=== PATIENT | male | born 1980 | race Caucasian/White ===

== ENCOUNTER → 2016-11-29 | Outpatient (CLI) | payer OTHER ==
[~2016-11-29] MED LIST: ACET-1256 PO; IBUP-1050 PO; LANS30CA12 PO; MELO15TA4 PO; ONDA4TAB10 SL; OPTIRAY 320 IV PRN; OXYC1TAB3 PO; PRED20TA PO; TRAM-10 PO
--- NOTE | 2016-11-29 15:59 | DIAGNOSTIC IMAGING REPORT ---
CT OF THE ABDOMEN WITH IV AND ORAL CONTRAST CT DOSE: 688.67 mGycm CLINICAL HISTORY: Acute left upper quadrant pain. TECHNIQUE: Axial images of the abdomen were obtained following intravenous injection of 94 cc Optiray 320 IV. Oral contrast was administered. COMPARISON STUDY: None. FINDINGS: Visualized portions of the lower chest demonstrate linear and groundglass opacities suggestive of atelectasis. There is no pneumatosis, free air or portal venous gas within the abdomen. Liver morphology is normal. Note is made of a 1.3 cm hypodense segment 7 hepatic lesion shown on axial image 2472. The size of the spleen is at the upper limits of normal. There is no perisplenic fluid. There is no splenic lesion. The adrenal glands, kidneys and pancreas are normal. There is no biliary or pancreatic ductal dilatation. No abdominal lymphadenopathy or ascites is identified. The caliber and wall thickness of visualized small and large bowel are normal. Skeletal structures are unremarkable. IMPRESSION: 1. No acute process within the abdomen. 2. No significant abnormality of the spleen. Size of the spleen at the upper limits of normal. No perisplenic fluid. 3. Indeterminate 1.3 cm right hepatic lobe lesion. Although indeterminate, this is likely benign. A follow-up right upper quadrant ultrasound could be obtained. Electronically signed by: Hermilo Alejandre M.D. 11/29/2016 3:57 PM Dictated Date/Time: 11/29/2016 3:50 PM
== END | disposition home or self-care (01) ==
LOC: C.CTS 14:52
PROVIDERS: ATTEND Internal Medicine
DX: R10.12 Left upper quadrant pain (principal); K76.9 Liver disease, unspecified

== ENCOUNTER → 2017-03-14 | Outpatient (CLI) | payer OTHER ==
[~2017-03-14] MED LIST changes: +CYCL10TA6 PO; +DOCU-94 PO; +IBUP-1451 PO; +METH4PAK PO; +ONDA4TAB10 PO; -OPTIRAY 320 IV PRN; +PRLSR20 PO
--- NOTE | 2017-03-14 09:48 | DIAGNOSTIC IMAGING REPORT ---
ABDOMINAL ULTRASOUND, RIGHT UPPER QUADRANT HISTORY: Evaluate liver lesion on CT.. COMPARISON: Abdomen and pelvis CT 11/29/2016. FINDINGS: Pancreas: The pancreatic tail is obscured by overlying bowel gas. The remaining portions of the pancreas are within normal limits. Liver: Unremarkable. Gallbladder: No gallbladder wall thickening. No gallstones. CBD: 4 mm. Right kidney: No hydronephrosis. IMPRESSION: 1. No significant abnormality within the abdomen. 2. Specifically, the right hepatic lobe lesion seen on CT was not identified on this examination. This was likely obscured by the overlying lung parenchyma given the close proximity to the diaphragm. Electronically signed by: Marcus Medina M.D. 03/14/2017 9:47 AM Dictated Date/Time: 03/14/2017 9:45 AM
== END | disposition home or self-care (01) ==
LOC: C.ULTR 09:16
PROVIDERS: ATTEND Internal Medicine
DX: K76.9 Liver disease, unspecified (principal)

== ENCOUNTER → 2017-04-23 | Outpatient (CLI) | payer OTHER ==
[2017-04-23 12:15] LABS: BASO % 0.2 %; BASO ABS # 0.02 K/uL (0-0.2); COMPLETE YES; EOS % 2.4 %; HEMATOCRIT 43.3 % (42-52); IG% 0.1 %; LYMPH % 25.3 %; MEAN CELL VOLUME 90.8 fL (80-100); MEAN CORPUSCULAR HGB CONC 34.2 g/dl (32-36); MEAN PLATELET VOLUME 9.5 fL (7.4-10.4); PLATELET COUNT 228 K/uL (130-400); RED BLOOD COUNT 4.77 M/uL (4.7-6.1)
[2017-04-23 12:32] LABS: ALT/SGPT 28 U/L (12-78); BLOOD UREA NITROGEN 21 mg/dl (7-18); CARBON DIOXIDE 26 mmol/L (21-32); CHLORIDE 106 mmol/L (98-107); CHOLESTEROL 200 mg/dl (0-200); CREATININE 0.92 mg/dl (0.60-1.40); GLUCOSE 91 mg/dl (70-99); MAGNESIUM 2.2 mg/dl (1.8-2.4); POTASSIUM 4.3 mmol/L (3.5-5.1); SODIUM 140 mmol/L (136-145); TRIGLYCERIDES 157 mg/dl (0-150); VERY LOW DENSITY LIPOPROT CALC 31 mg/dl
[2017-04-23 12:42] LABS: ALB/GLOB RATIO 1.3 (0.9-2); ALKALINE PHOSPHATASE 63 U/L (45-117); AST/SGOT 17 U/L (15-37); CHOLESTEROL/HDL RATIO 5.4; HDL CHOLESTEROL 37 mg/dl; LDL CHOLESTEROL CALCULATED 132 mg/dl
== END | disposition home or self-care (01) ==
LOC: C.LABBFT 08:30
PROVIDERS: ATTEND Internal Medicine
DX: Z00.00 Encounter for general adult medical examination without abnormal findings (principal); R07.9 Chest pain, unspecified; R00.2 Palpitations; K76.9 Liver disease, unspecified

== ENCOUNTER 2017-05-20 11:49 | Emergency (ER) | payer OTHER ==
[~2017-05-20] VITALS: Ht 180.3 cm; Wt 114.0 kg
[2017-05-20 11:51] VITALS: TEMP 36.6; Ht 180.3 cm; Wt 114.0 kg
[2017-05-20] MEDS ORDERED: ONDANSETRON INJ 2 MG/ML 2 ML VIAL IV STA ×2 (12:54→15:54)
[2017-05-20] MEDS ORDERED: HYDROmorphone INJ 1 MG/ML SYR IV STA (12:54)
[2017-05-20] MEDS ORDERED: KETOROLAC TROMETHAMINE 30 MG/ML VIAL IV STA (12:54)
[2017-05-20] MEDS ORDERED: DEXAMETHASONE SOD INJ 10 MG/ML VIAL IV ONE (13:00)
[2017-05-20] MEDS ORDERED: MELO15TA4 PO (13:36)
[2017-05-20] MEDS ORDERED: LANS30CA12 PO (13:37)
[2017-05-20] MEDS ORDERED: IBUP-1050 PO (13:39)
--- NOTE | 2017-05-20 14:50 | DIAGNOSTIC IMAGING REPORT ---
LUMBAR SPINE W/O CONTRAST HISTORY: 36-year-old male presents with radicular low back pain with left leg weakness for approximately 2 weeks. COMPARISON: MRI lumbar spine 03/13/2013, lumbar spine radiographs 03/09/2013. TECHNIQUE: Multiplanar multisequence MRI of the lumbar spine was obtained without contrast. FINDINGS: Vertebral body heights are well-maintained without compression deformity. No focal bone marrow or soft tissue edema. Mild disc desiccation is present at L4-L5 with mild intervertebral disc space narrowing. Conus medullaris terminates at the T12-L1 level. Signal within the cord is unremarkable. T12-L1: Unremarkable on the sagittal imaging alone. L1-L2: Annular tear with central disc extrusion is present centrally extending 5 mm caudal to the superior endplate of L2. This measures 5 mm in AP dimension and causes moderate to severe central canal and severe left lateral recess narrowing. The bilateral neuroforamen are generally patent. L2-L3: Right lateral recess/foraminal disc protrusion causes mild central canal, moderate right lateral recess and mild right neuroforaminal narrowing. The left neuroforamen is generally patent. L3-L4: Mild ligamentum flavum redundancy and broad-based posterior disc bulge without significant central canal or neuroforaminal narrowing. L4-L5: Annular tear with mild intervertebral disc space narrowing and disc desiccation. Broad-based posterior disc bulge favoring the left lateral recess and left neuroforamen is present in conjunction with mild facet arthropathy causing mild left neuroforaminal stenosis. Central canal and right neuroforamen are generally patent. L5-S1: Mild facet arthropathy and ligamentum flavum redundancy causes mild left neuroforaminal stenosis. The central canal and right neuroforamen are generally patent. IMPRESSION: 1. Annular tear with central disc extrusion extending 5 mm caudally at L1-L2 causes moderate to severe central canal and severe left lateral recess narrowing. This likely accounts for the patient's reported left lower extremity symptomatology. 2. At L2-L3 there is a right lateral recess/foraminal disc protrusion which causes mild central canal, moderate right lateral recess and mild right neuroforaminal narrowing. 3. Mild intervertebral disc space narrowing with annular tear at L4-L5. Electronically signed by: Rigoberto Yanez 05/20/2017 2:49 PM Dictated Date/Time: 05/20/2017 2:30 PM
[2017-05-20] MEDS ORDERED: ONDA4TAB10 SL (16:03)
[2017-05-20] MEDS ORDERED: OXYC1TAB3 PO (16:03)
[2017-05-20] MEDS ORDERED: PRED20TA PO (16:03)
--- NOTE | 2017-05-20 16:05 | EMERGENCY ROOM VISIT NOTE ---
ED Visit Note First contact with patient: 12:25 CHIEF COMPLAINT: Low back pain radiating to the legs x 2.5 weeks HISTORY OF PRESENT ILLNESS: Patient is a generally healthy 46-year-old white male who presents emergency department for evaluation of low back pain radiating into the legs. He says symptoms for about 2-1/2 weeks. They started after he was bent over pain limiting sweet corn. He describes pain primarily across his left low back, radiating into his buttocks. It has been radiating into both the right and the left legs, or into the medial thighs, although only radiates into one leg at a time. He states that it initially was the right leg and more recently has been the left leg. The pain has progressively worsened, to the point where he has been ambulating with a walker, and reports weakness in his legs. Pain is worse with movement, to particularly with flexion. He has been using [id number] anti-inflammatories, as well as a Medrol Dosepak and Mobic which were prescribed by his PCP. He is previously established with [facility], his last MRI was in 2012. He had a left lower extremity trauma many years ago and has a chronic foot drop and numbness for which he wears a brace, and denies any changes in this. He denies any bowel or bladder incontinence or saddle anesthesias. No recent direct trauma. No vomiting or abdominal pain. REVIEW OF SYSTEMS: Review of systems as per HPI. All other systems reviewed were negative. 10 systems reviewed. PMH: Electronic medical records are reviewed and summarized as above/below. See Problem List. SOCIAL HISTORY: Patient lives at home with his and son. Nonsmoker, drinker, socially. PHYSICAL EXAM: Vital Signs: Reviewed Nurse's notes. CONSTITUTIONAL: Patient is a 36-year-old white male who is awake and alert and sitting upright on the gurney in moderate distress due to his back pain. There is significant discomfort with position changes. NECK: No bruits auscultated. Supple without lymphadenopathy. No thyromegaly. No meningeal signs. Full active range of motion without discomfort. CARDIOVASCULAR: Regular rate and rhythm, with normal S1 and S2, no murmur or gallop or rub is heard. No carotid bruits auscultated. No JVD. Peripheral pulses easily palpable. RESPIRATORY: Breath sounds equal and clear to auscultation without wheezes, rales, or rhonchi heard. Full and equal chest expansion without accessory muscle use or retractions. ABDOMEN: Bowel sounds are present. Abdomen is soft, nontender and nondistended. INTEGUMENTARY: No lesions or rash, normal skin turgor. LYMPH: No lymphadenopathy. SPINE: Examination of the patient's back does not demonstrate any ecchymosis, abrasions or outward signs of trauma. No erythema, increased warmth or induration. Patient has midline discomfort to palpation over the low lumbar spine, primarily on the left. There is no pain over the SI joint or the sciatic notch. He has increased pain with range of motion including flexion. EXTREMITIES: Leg lengths are symmetrical. Negative logroll bilaterally. Patient has a chronic left foot drop and is unable to dorsiflex or plantar flex fully with the left. Normal strength including dorsi-flexion and plantar flexion of the right great toe and ankle. Normal strength to flexion and extension of the knees and flexion of the hips bilaterally. Positive bilateral straight leg raise testing. Lower extremity DTRs are equal and symmetrical bilaterally. Distal pulses are easily palpable. Sensation light touch is intact over the lower extremities bilaterally. EMERGENCY DEPARTMENT COURSE: The patient was seen and examined as above. His old MRI was reviewed. IV lock was initiated and he was medicated with Toradol, Decadron, Dilaudid and Zofran for pain. Lumbar spine MRI was obtained with the findings noted below. The patient did report some nausea when he returned from MRI was given an additional Zofran 4 mg IV. MRI findings were reviewed with Dr. Del Cid, and discussed with the patient and his at length. Treatment options were discussed with the patient. He would prefer to go home, which I feel is reasonable at this time, as long as his pain can be managed. He certainly does not have any physical exam findings consistent with acute cord compression or cauda equina syndrome at this time. Dr. Del Cid reports that his office will get in touch with the patient to set up an appointment for later this week. The patient will be discharged home on oxycodone, Zofran and penicillin. He was educated on the worrisome signs or symptoms for which she would return to the emergency department. He was discharged home with his driving. LUMBAR SPINE W/O CONTRAST HISTORY: 36-year-old male presents with radicular low back pain with left leg weakness for approximately 2 weeks. COMPARISON: MRI lumbar spine 03/13/2013, lumbar spine radiographs 03/09/2013. TECHNIQUE: Multiplanar multisequence MRI of the lumbar spine was obtained without contrast. FINDINGS: Vertebral body heights are well-maintained without compression deformity. No focal bone marrow or soft tissue edema. Mild disc desiccation is present at L4-L5 with mild intervertebral disc space narrowing. Conus medullaris terminates at the T12-L1 level. Signal within the cord is unremarkable. T12-L1: Unremarkable on the sagittal imaging alone. L1-L2: Annular tear with central disc extrusion is present centrally extending 5 mm caudal to the superior endplate of L2. This measures 5 mm in AP dimension and causes moderate to severe central canal and severe left lateral recess narrowing. The bilateral neuroforamen are generally patent. L2-L3: Right lateral recess/foraminal disc protrusion causes mild central canal, moderate right lateral recess and mild right neuroforaminal narrowing. The left neuroforamen is generally patent. L3-L4: Mild ligamentum flavum redundancy and broad-based posterior disc bulge without significant central canal or neuroforaminal narrowing. L4-L5: Annular tear with mild intervertebral disc space narrowing and disc desiccation. Broad-based posterior disc bulge favoring the left lateral recess and left neuroforamen is present in conjunction with mild facet arthropathy causing mild left neuroforaminal stenosis. Central canal and right neuroforamen are generally patent. L5-S1: Mild facet arthropathy and ligamentum flavum redundancy causes mild left neuroforaminal stenosis. The central canal and right neuroforamen are generally patent. IMPRESSION: 1. Annular tear with central disc extrusion extending 5 mm caudally at L1-L2 causes moderate to severe central canal and severe left lateral recess narrowing. This likely accounts for the patient's reported left lower extremity symptomatology. 2. At L2-L3 there is a right lateral recess/foraminal disc protrusion which causes mild central canal, moderate right lateral recess and mild right neuroforaminal narrowing. 3. Mild intervertebral disc space narrowing with annular tear at L4-L5. Problem List Medical Problems: (1) Chest pain Status: Resolved (2) Chest pain Status: Resolved (3) Hyperlipidemia Nec/Nos Status: Chronic (4) Hypertension Status: Chronic (5) Lumbosacral Neuritis Nos Status: Chronic Current/Historical Medications Scheduled Ibuprofen (Advil), 600 MG PO DAILY Lansoprazole (Prevacid), 30 MG PO DAILY Meloxicam (Meloxicam), 15 MG PO DAILY Prednisone (Prednisone), 0 PO DAILY Scheduled PRN Ondasetron Odt (Zofran Odt), 4 MG SL Q6H PRN for Nausea or Vomiting Oxycodone Ir (Roxicodone Ir), 1-2 TAB PO Q4H PRN for Severe Pain Allergies Uncoded Allergies: N (Allergy, Unknown, 12/31/02) NKDA (Allergy, Unknown, 12/31/02) Vital Signs Date Time Temp Pulse Resp B/P (MAP) Pulse Ox O2 Delivery O2 Flow Rate FiO2 05/20/17 13:44 65 18 120/61 97 Room Air 05/20/17 11:51 36.6 77 18 96 Room Air Medications Administered Medications (Trade) Dose Ordered Sig/Ric Route Start Time Stop Time Status Last Admin Dose Admin Ketorolac Tromethamine (Toradol Inj) 30 mg NOW STAT IV 05/20/17 12:54 05/20/17 12:56 DC 05/20/17 12:54 30 MG Dexamethasone Sodium Phosphate (Decadron Inj) 10 mg NOW ONCE IV 05/20/17 13:00 05/20/17 13:01 DC 05/20/17 13:00 10 MG Hydromorphone HCl (Dilaudid Inj) 1 mg NOW STAT IV 05/20/17 12:54 05/20/17 12:56 DC 05/20/17 12:54 1 MG Ondansetron HCl (Zofran Inj) 4 mg NOW STAT IV 05/20/17 12:54 05/20/17 12:56 DC 05/20/17 12:54 4 MG Ondansetron HCl (Zofran Inj) 4 mg NOW STAT IV 05/20/17 15:54 05/20/17 15:55 DC 05/20/17 16:31 4 MG Departure Information Impression Primary Impression: Lumbar disc herniation with radiculopathy Prescriptions Oxycodone Ir (Roxicodone Ir) 5 Mg Tab 1-2 TAB PO Q4H Y for Severe Pain, #25 TAB For Initial Treatment Prov: Adore Nava,PA 05/20/17 Prednisone (Prednisone) 20 Mg Tab 0 PO DAILY, #18 TAB 3 DAILY FOR 3 DAYS, THEN 2 DAILY FOR 3 DAYS, THEN 1 DAILY FOR 3 DAYS. Prov: Adore Nava PA 05/20/17 Ondasetron Odt (ZOFRAN ODT) 4 Mg Tab 4 MG SL Q6H Y for Nausea or Vomiting, #20 TAB Prov: Adore Nava PA 05/20/17 Referrals Arnel Mathew M.D. (PCP) Patient Instructions My [facility] Additional Instructions DO NOT drive, drink alcohol, operate machinery, or perform dangerous activities today. You were given medications in the ER that can affect your ability to safely function or operate a vehicle. Prednisone 20mg: Once daily as instructed until the prescription is finished. It is best to take this earlier in the day as some patients note occasional difficulty falling asleep when taken in the late evening. Oxycodone (OxyIR) 5mg: Take 1-2 pills every four hours for breakthrough pain. Avoid alcohol, operating machinery or dangerous equipment, working on ladders or roofs, DRIVING, or situations where being under the influence may be dangerous. It is recommended to use an [id number] stool softener such as Colace, 100mg twice daily while taking this medication to avoid constipation. Stop Ibuprofen/Mobic, etc. Zofran(odansetron) tablets 4mg: Take one and allow it to dissolve in your mouth every four to six hours as needed for nausea or vomiting. Acetaminophen(Tylenol) may be used for fever or pain. Use 1000mg every six hours as needed. Avoid using more than 3000mg in a 24 hour period. This medication can be taken if you need to drive, work, or perform activities which may be dangerous when taking narcotic pain medication. Rest and avoid heavy lifting until your symptoms resolve and then gradually return to full activity. A good rule of thumb is if it hurts your back to perform a certain activity, then it should be avoided until you are healthy again. A heating pad, warm compresses, or a hot shower may help with tight muscles and can be done several times a day as needed. Continue current medications. Return to the ER immediately for any numbness, tingling, severe pain, loss of control of your bowels or bladder, inability to walk, or as needed. Follow up with [facility] as arranged. They will contact you with an appointment.
[2017-05-20 17:07] VITALS: BP 128/65; PULSE 72; O2SAT 94
[2017-05-21] MEDS ORDERED: TRAM-10 PO (15:32)
[2017-05-23] MEDS ORDERED: ACET-1256 PO (07:26)
== END 2017-05-20 17:08 | disposition home or self-care (01) ==
LOC: C.EDB 11:52 → C.EDD 17:08
DX: M51.16 Intervertebral disc disorders with radiculopathy, lumbar region (principal); M21.372 Foot drop, left foot; E78.5 Hyperlipidemia, unspecified; I10 Essential (primary) hypertension

== ENCOUNTER → 2017-05-23 | Day surgery (SDC) | payer OTHER ==
[~2017-05-23] VITALS: Ht 180.3 cm; Wt 113.6 kg
[~2017-05-23] MED LIST changes: -CYCL10TA6 PO; -DOCU-94 PO; -IBUP-1451 PO; +IOPAMIDOL INJ 61% 15 ML VIAL ONE; +LIDOCAINE HCL 1% MPF 5 ML VIAL ONE; -METH4PAK PO; -ONDA4TAB10 PO; -PRLSR20 PO; +SODIUM CHLORIDE 0.9% INJ 10 ML VIAL ONE
[2017-05-23 07:26] VITALS: Ht 180.3 cm; Wt 113.6 kg
--- NOTE | 2017-05-23 13:21 | History & Physical Bridge - SC ---
H&P Re-Evaluation Bridge Note: I have examined the patient, reviewed the History & Physical and in the interval since the performance of the History & Physical I have noted the following changes of clinical significance: No changes noted
--- NOTE | 2017-05-23 13:44 | Discharge Instructions ---
Discharge Instructions Date of Service May 23, 2017. Visit Reason for Visit: Low Back Pain Discharge Discharge Diagnosis / Problem: low back pain Discharge Goals Goal(s): Decrease discomfort, Improve function Activity Recommendations Activity Limitations: resume your previous activity Anesthesia . Post Anesthesia Instructions: If you have had General Anesthesia or IV Sedation: * Do not drive today. * Resume driving when surgeon permits. * Do not make important decisions or sign legal documents today. * Call surgeon for: 1. Temperature elevations greater than 101 degrees F. 2. Uncontrollable pain. 3. Excessive bleeding. 4. Persistent nausea and vomiting. 5. Medication intolerance (nausea, vomiting or rash). * For nausea and vomiting use only clear liquids such as: tea, soda, bouillon until nausea subsides, then gradually increase diet as tolerated. * If you have any concerns or questions, call your surgeon's office. If physician is unavailable and it is an emergency, call 911 or go to the nearest emergency room. . Diet Recommendations Recommended Home Diet: resume previous diet Procedures Procedures Performed: LUMBAR EPIDURAL STEROID INJECTION. Pending Studies Studies pending at discharge: no Medical Emergencies . Who to Call and When: Medical Emergencies: If at any time you feel your situation is an emergency, please call 911 immediately. . Non-Emergent Contact Non-Emergency issues call your: Specialist . . "Provider Documentation" section prepared by Elkin Davis. .
[2017-05-23 13:48] VITALS: BP 132/94; PULSE 74; TEMP 36.6; O2SAT 99
--- NOTE | 2017-05-30 08:13 | [facility] Operative Report ---
Operative Report Date of Service May 23, 2017. Operative Report DATE OF SURGERY: 05/23/17. DATE OF OPERATION: 05/23/2017 PREOPERATIVE DIAGNOSIS: L1-2 herniated nucleus pulposus with left lower extremity radiculopathy. POSTOPERATIVE DIAGNOSIS: Same. PROCEDURE: Left paramedian L1-2 intralaminar epidural steroid injection under fluoroscopic guidance. SURGEON: Dr. Elkin Davis. INDICATIONS: The patient is a 36-year-old white male who presents today for an epidural to provide him with relief. PHYSICAL EXAMINATION: GENERAL: Pleasant male seated comfortably in no apparent distress. MUSCULOSKELETAL EXAMINATION: Lumbar paraspinal muscles were palpated. They were nontender. He had no sensitivity of the sciatic notch. He had normal lower extremity strength. Negative seated straight leg raises and had no difficulty with hip adduction. CONSENT: Verbal and written consent was obtained from the patient. Risks and benefits were reviewed. Risks include but are not limited to epidural abscess, epidural hematoma, allergic reaction, dural puncture. The patient wishes to proceed. PROCEDURE: The patient was taken back to the special procedures room of the [facility] where he was maintained in a prone position. Backside was cleansed with Betadine x3 and a dry sterile dressing was applied. Fluoroscope was used to identify the L1-2 intralaminar space and overlying skin on the right side was anesthetized with 4 mL of lidocaine 1% with a 25 gauge 1.5-inch needle. A 22-gauge 3-1/2 inch Tuohy needle was then directed down towards the intralaminar space. It was advanced under lateral fluoroscopic guidance. Loss of resistance was noted and Isovue-300 contrast 1 mL was injected in which demonstrated epidural uptake pattern which was confirmed with both AP and lateral views. He then underwent injection after negative aspiration of 40 mg of Depo-Medrol and 4 mL of preservative free sodium chloride. Injection was well tolerated. DISPOSITION: 1. The patient is taken out into the discharge recovery area where he will be discharged home once discharge criteria have been met. 2. Follow up in the [facility] office in 2-4 weeks. I attest to the content of the Intraoperative Record and any orders documented therein. Any exceptions are noted below. I attest to the content of the Intraoperative Record and any orders documented therein. Any exceptions are noted below.
== END | disposition home or self-care (01) ==
LOC: X.SURG 12:43
PROVIDERS: ATTEND Physical Medicine & Rehabilitation
DX: M51.26 Other intervertebral disc displacement, lumbar region (principal); M54.10 Radiculopathy, site unspecified; Z82.49 Family history of ischemic heart disease and other diseases of the circulatory system

== ENCOUNTER → 2017-08-06 | Outpatient (CLI) | payer OTHER ==
[~2017-08-06] MED LIST changes: -IOPAMIDOL INJ 61% 15 ML VIAL ONE; -LIDOCAINE HCL 1% MPF 5 ML VIAL ONE; -ONDA4TAB10 SL; +OPTIRAY 320 IV PRN; -SODIUM CHLORIDE 0.9% INJ 10 ML VIAL ONE
--- NOTE | 2017-08-06 07:45 | DIAGNOSTIC IMAGING REPORT ---
ABD WITH IV CONTRAST ONLY (CT) CLINICAL HISTORY: 37 years-old Male presenting with liver lesions. TECHNIQUE: Multidetector CT of the abdomen was performed after the administration of intravenous contrast. IV contrast: 93 mL of Optiray 320. A dose lowering technique was used consistent with the principles of ALARA (as low as reasonably achievable). COMPARISON: CT from 11/29/2016 and ultrasound from 03/14/2017. CT DOSE (mGy.cm): The estimated cumulative dose is 529.05 mGy.cm. FINDINGS: Rotary Drill Rig Operator topogram: Unremarkable. Lung bases: Lung bases clear. No pericardial or pleural effusion. Liver: Normal morphology. The previously noted indeterminate liver lesion in segment 7 is not identified on the current examination definitively. This could be secondary to partial opacification of the lesion. Patent hepatic vasculature. Biliary: No intrahepatic or extrahepatic biliary ductal dilatation. Normal gallbladder. Pancreas: Normal. Spleen: Normal. Adrenal glands: Normal. Kidneys and ureters: Normal. No hydronephrosis. Gastrointestinal tract: Normal. No bowel obstruction. Peritoneal cavity: No free fluid or intraperitoneal gas. Vasculature: Aorta and IVC patent and normal in caliber. Lymph nodes: Numerous small mesenteric lymph nodes noted. Abdominal wall: Normal. Musculoskeletal: Normal. IMPRESSION: 1. Nonvisualization of the previously noted small liver lesion in the right hepatic lobe. This could suggest partial opacification of the lesion. Given the lack of progression since November, this is suggestive of a benign lesion, possibly hemangioma. In the absence of known malignancy or hepatocellular risk factors, no further follow-up is recommended. Electronically signed by: Geoffrey Carlson M.D. 08/06/2017 7:44 AM Dictated Date/Time: 08/06/2017 7:39 AM
== END | disposition home or self-care (01) ==
LOC: C.CTS 06:46
PROVIDERS: ATTEND Internal Medicine
DX: K76.9 Liver disease, unspecified (principal)

== ENCOUNTER → 2017-10-03 | Day surgery (SDC) | payer OTHER ==
[2017-09-24 13:18] VITALS: Ht 180.3 cm; Wt 113.6 kg
[~2017-10-03] VITALS: Ht 180.3 cm; Wt 113.6 kg
[~2017-10-03] MED LIST changes: -ACET-1256 PO; -IBUP-1050 PO; +IBUP-1451 PO; +IOPAMIDOL INJ 61% 15 ML VIAL ONE; -LANS30CA12 PO; +LIDOCAINE HCL 1% MPF 5 ML VIAL ONE; -MELO15TA4 PO; +ONDA4TAB10 PO; -OPTIRAY 320 IV PRN; -OXYC1TAB3 PO; -PRED20TA PO; +PRLSR20 PO; +SODIUM CHLORIDE 0.9% INJ 10 ML VIAL ONE
[2017-10-03 15:29] VITALS: TEMP 37.5
--- NOTE | 2017-10-03 15:37 | Discharge Instructions ---
Discharge Instructions Date of Service Oct 03, 2017. Visit Reason for Visit: Lumbar Displacement Discharge Discharge Diagnosis / Problem: right leg pain Discharge Goals Goal(s): Decrease discomfort, Improve function Activity Recommendations Activity Limitations: resume your previous activity Anesthesia . Post Anesthesia Instructions: If you have had General Anesthesia or IV Sedation: * Do not drive today. * Resume driving when surgeon permits. * Do not make important decisions or sign legal documents today. * Call surgeon for: 1. Temperature elevations greater than 101 degrees F. 2. Uncontrollable pain. 3. Excessive bleeding. 4. Persistent nausea and vomiting. 5. Medication intolerance (nausea, vomiting or rash). * For nausea and vomiting use only clear liquids such as: tea, soda, bouillon until nausea subsides, then gradually increase diet as tolerated. * If you have any concerns or questions, call your surgeon's office. If physician is unavailable and it is an emergency, call 911 or go to the nearest emergency room. . Diet Recommendations Recommended Home Diet: resume previous diet Procedures Procedures Performed: LUMBAR EPIDURAL STEROID INJECTION Pending Studies Studies pending at discharge: no Medical Emergencies . Who to Call and When: Medical Emergencies: If at any time you feel your situation is an emergency, please call 911 immediately. . Non-Emergent Contact Non-Emergency issues call your: Specialist . . "Provider Documentation" section prepared by Elkin Davis. .
[2017-10-03 15:42] VITALS: BP 133/85; PULSE 90; O2SAT 94
--- NOTE | 2017-10-03 15:50 | OPERATIVE REPORT ---
DATE OF OPERATION: 10/03/2017 PREOPERATIVE DIAGNOSIS: L1-L2 HNP with right lower extremity radiculopathy. POSTOPERATIVE DIAGNOSIS: Same. PROCEDURE: Right paramedian L1-L2 intralaminar epidural steroid injection under fluoroscopic guidance. SURGEON: Dr. Elkin Davis. INDICATIONS: The patient is a 37-year-old white male who underwent an epidural injection for an L1-2 herniation in May. He did well up until a short period ago when he was digging a hole to plant a tree. He had the sudden onset of recurrence of the pain that is debilitating at times. He was seen recently by chiropractor. He reports the pain got worse and is now bilateral but still predominantly on the right. He presents today for an injection to provide him with relief. PHYSICAL EXAMINATION: He is very uncomfortable lying prone. He has limitations with any type of motion of the back and has sensitivity into the right flank area. CONSENT: Verbal and written consent was obtained from the patient. Risks and benefits were reviewed. Risks include epidural abscess, epidural hematoma, allergic reaction, dural puncture. The patient wishes to proceed. PROCEDURE: The patient was taken back to the special procedures room of the [facility] where he was maintained in a prone position. Backside was cleansed with Betadine x3 and a dry sterile dressing was applied. Fluoroscope was used to identify the L1-L2 intralaminar space and overlying skin on the right side was anesthetized with 4 mL of lidocaine 1% with a 25 gauge 1.5-inch needle. A 22-gauge 3-1/2 inch Tuohy needle was then directed down towards the intralaminar space. Loss of resistance was noted at a depth of just over 4 cm. Isovue-300 contrast 0.5 mL was injected in which demonstrated epidural uptake pattern which was more superior and at the level. He then underwent injection after negative aspiration of 40 mg of Depo-Medrol, 4 mL of preservative free sodium chloride. It was uncomfortable and reproduced an increase in radicular sensation which was transient. DISPOSITION: 1. The patient is taken out into the discharge recovery area where he will be discharged home once discharge criteria have been met. 2. Follow up in the [facility] office in 2-4 weeks. I attest to the content of the Intraoperative Record and any orders documented therein. Any exception s are noted below.
== END | disposition home or self-care (01) ==
LOC: X.SURG 14:15
PROVIDERS: ATTEND Physical Medicine & Rehabilitation
DX: M51.16 Intervertebral disc disorders with radiculopathy, lumbar region (principal); M79.604 Pain in right leg

== ENCOUNTER → 2018-01-23 | Outpatient (CLI) | payer OTHER ==
[~2018-01-23] MED LIST changes: -IOPAMIDOL INJ 61% 15 ML VIAL ONE; -LIDOCAINE HCL 1% MPF 5 ML VIAL ONE; -SODIUM CHLORIDE 0.9% INJ 10 ML VIAL ONE
--- NOTE | 2018-01-23 12:34 | DIAGNOSTIC IMAGING REPORT ---
HEAD CT NONCONTRAST CT DOSE: 537.48 mGy.cm HISTORY: R55 Syncope and collapse W01.0XXA Fall from slip, trip, or stumble TECHNIQUE: Multiaxial CT images of the head were performed without the use of intravenous contrast. Automated exposure control was utilized for this study. A dose lowering technique was utilized adhering to the principles of ALARA. Comparison: Head CT 01/03/2015. Findings: The paranasal sinuses and mastoid air cells are clear. The calvarium and skull base are intact. The ventricles and sulci are within normal limits. There is no mass, hematoma, midline shift, or acute infarct. Impression: No acute intracranial abnormality. Electronically signed by: Marcus Medina M.D. 01/23/2018 12:32 PM Dictated Date/Time: 01/23/2018 12:22 PM
--- NOTE | 2018-01-23 12:51 | DIAGNOSTIC IMAGING REPORT ---
CERVICAL SPINE 2 OR 3 VIEWS CLINICAL HISTORY: W01.0XXA Fall from slip, trip, or stumble M54.2 Neck [id number] COMPARISON STUDY: No previous studies for comparison. FINDINGS: The prevertebral soft tissues are normal. No fractures or subluxations are visualized. There are mild multilevel degenerative changes. IMPRESSION: No fractures or subluxations identified on this AP and lateral study Electronically signed by: Aki Marcelo M.D. 01/23/2018 12:50 PM Dictated Date/Time: 01/23/2018 12:49 PM
--- NOTE | 2018-01-23 12:52 | DIAGNOSTIC IMAGING REPORT ---
RIGHT SHOULDER 3 VIEWS HISTORY: Right shoulder pain. W01.0XXA Fall from slip, trip, or [id number] Neck [id number] COMPARISON: None. FINDINGS: There is no fracture or dislocation. Soft tissues are unremarkable. The right clavicle is intact. IMPRESSION: No fracture or dislocation within the right shoulder. Electronically signed by: Marcus Medina M.D. 01/23/2018 12:50 PM Dictated Date/Time: 01/23/2018 12:49 PM
[2018-01-23 13:18] LABS: BASO % 0.1 %; BASO ABS # 0.01 K/uL (0-0.2); EOS % 1.2 %; EOS ABS # 0.11 K/uL (0-0.5); HEMATOCRIT 43.5 % (42-52); IG# 0.01 K/uL (0.00-0.02); LYMPH % 18.1 %; LYMPH ABS # 1.65 K/uL (1.2-3.4); MEAN CELL VOLUME 91.2 fL (80-100); MEAN CORPUSCULAR HEMOGLOBIN 31.4 pg (25-34); MEAN CORPUSCULAR HGB CONC 34.5 g/dl (32-36); MEAN PLATELET VOLUME 9.5 fL (7.4-10.4); MONO % 7.8 %; MONO ABS # 0.71 K/uL (0.11-0.59); NEUT % 72.7 %; NEUT ABS # 6.62 K/uL (1.4-6.5); PLATELET COUNT 245 K/uL (130-400); RED CELL DISTRIBUTION WIDTH CV 12.9 % (11.5-14.5); RED CELL DISTRIBUTION WIDTH SD 43.2 fL (36.4-46.3); WHITE BLOOD COUNT 9.11 K/uL (4.8-10.8)
[2018-01-23 13:51] LABS: ALBUMIN 4.1 gm/dl (3.4-5.0); ALT/SGPT 33 U/L (12-78); BLOOD UREA NITROGEN 15 mg/dl (7-18); CALCIUM 9.1 mg/dl (8.5-10.1); CARBON DIOXIDE 29 mmol/L (21-32); CREATININE 1.06 mg/dl (0.60-1.40); GLUCOSE 106 mg/dl (70-99); POTASSIUM 3.9 mmol/L (3.5-5.1); SODIUM 139 mmol/L (136-145)
[2018-01-23 13:54] LABS: ALKALINE PHOSPHATASE 67 U/L (45-117); AST/SGOT 14 U/L (15-37); TOTAL PROTEIN 7.4 gm/dl (6.4-8.2)
== END | disposition home or self-care (01) ==
LOC: C.CTS 12:03
PROVIDERS: ATTEND Nurse Practitioner
DX: R55 Syncope and collapse (principal); M54.2 Cervicalgia; S49.91XA Unspecified injury of right shoulder and upper arm, initial encounter; W01.0XXA Fall on same level from slipping, tripping and stumbling without subsequent striking against object, initial encounter; R53.83 Other fatigue; R73.9 Hyperglycemia, unspecified

== ENCOUNTER → 2018-06-26 | Outpatient (CLI) | payer OTHER | END | disposition home or self-care (01) | LOC: C.LABBFT 09:38 | PROVIDERS: ATTEND Nurse Practitioner | DX: Z13.220 Encounter for screening for lipoid disorders (principal); Z13.228 Encounter for screening for other metabolic disorders ==